=== PATIENT | male | born 1980 | race African-American/Black ===

== ENCOUNTER 2016-09-21 16:00 | Emergency (ER) | payer MEDICAID ==
[~2016-09-21] VITALS: Ht 170.2 cm; Wt 72.1 kg
[2016-09-21 16:04] VITALS: BP 155/86
--- NOTE | 2016-09-21 16:57 | NUR ---
Patient ambulated to [facility] to be evaluated as fast track by Dr. Linares.
--- NOTE | 2016-09-21 17:06 | NUR ---
PATIENT IS A 36 YO MALE BIB SELF FOR TOOTHACHE HE IS AWAKE AND ALERT ABLE TO AMBULATE TO [facility] FOR MD EVALUATION.
[2016-09-21] MEDS ORDERED: KETOROLAC 60 MG/2 ML VIAL IM ONE (18:55)
[2016-09-21 19:55] VITALS: BP 147/77
--- NOTE | 2016-09-21 19:55 | NUR ---
Patient discharged with v/s stable. Written and verbal after care instructions given and explained. Patient alert, oriented and verbalized understanding of instructions. Ambulatory with steady gait. All questions addressed prior to discharge. ID band removed. Patient advised to follow up with PMD. Rx of Augmentin, Silverwood, and Motrin given. Patient educated on indication of medication including possible reaction and side effects. Opportunity to ask questions provided and answered.
== END 2016-09-21 19:55 | disposition home or self-care (01) ==
LOC: MED 16:00
DX: K02.9 Dental caries, unspecified (principal)
CPT/HCPCS: 96372; 99283; J1885